=== PATIENT | male | born 1965 | race Caucasian/White ===

== ENCOUNTER 2016-07-06 09:21 | Outpatient (CLI) ==
[2015-12-31 16:21] VITALS: BMI 52.3
[2016-07-06 09:37] LABS: BASOPHILS % (AUTO) 0.4 % (0.0-3.0); EOSINOPHILS # (AUTO) 0.2 K/ul (0.0-0.7); HEMATOCRIT 42.3 % (42.0-52.0); HEMOGLOBIN 13.9 g/dl (14.0-18.0); IMMATURE GRANULOCYTE % (AUTO) 0.4 % (0.0-5.0); LYMPHOCYTES # (AUTO) 2.8 K/uL (0.60-3.4); LYMPHOCYTES % (AUTO) 25.9 (10.0-50.0); MEAN CORPUSCULAR HEMOGLOBIN 31.2 pg (27.0-31.0); MEAN CORPUSCULAR HGB CONC 32.9 (31.8-35.4); MEAN CORPUSCULAR VOLUME 95.1 fl (80.0-94.0); MONOCYTES # (AUTO) 0.9 K/uL (0.4-2.0); NEUTROPHILS # (AUTO) 6.8 K/ul (2.0-6.9); NEUTROPHILS % (AUTO) 63.3; PLATELET COUNT 316 10^3/uL (140-440); RED BLOOD COUNT 4.45 10^6/ul (4.70-6.10); WHITE BLOOD COUNT 10.69 K/ul (4.2-10.2)
[2016-07-06 10:14] LABS: ALBUMIN 3.6 g/dL (3.4-5.0); ALBUMIN/GLOBULIN RATIO 0.92; ANION GAP 13.8; BILIRUBIN,TOTAL 0.51 mg/dL (0.00-1.20); BUN/CREATININE RATIO 13.04; CALCIUM 9.6 mg/dL (8.2-10.2); CREATININE 0.92 mg/dL (0.60-1.10); POTASSIUM 4.8 mmol/L (3.5-5.1); TOTAL PROTEIN 7.5 g/dL (6.4-8.2)
== END 2016-07-06 09:22 | disposition home or self-care (01) ==
LOC: LAB 09:21
PROVIDERS: ATTEND Emergency Medicine
DX: E78.5 Hyperlipidemia, unspecified (principal); I10 Essential (primary) hypertension; E66.9 Obesity, unspecified; F32.9 Major depressive disorder, single episode, unspecified
CPT/HCPCS: 36415; 80053; 80061; 83036; 83525; 84443; 85025

== ENCOUNTER 2016-10-07 08:29 | Outpatient (CLI) ==
[2015-12-31 16:21] VITALS: BMI 52.3
[2016-10-07 08:45] LABS: BASOPHILS % (AUTO) 0.4 % (0.0-3.0); EOSINOPHILS # (AUTO) 0.3 K/ul (0.0-0.7); EOSINOPHILS % (AUTO) 4.3 % (0.0-7.0); HEMATOCRIT 39.7 % (42.0-52.0); HEMOGLOBIN 13.4 g/dl (14.0-18.0); IMMATURE GRANULOCYTE % (AUTO) 0.3 % (0.0-5.0); LYMPHOCYTES # (AUTO) 2.5 K/uL (0.60-3.4); LYMPHOCYTES % (AUTO) 32.5 (10.0-50.0); MEAN CORPUSCULAR HEMOGLOBIN 32.1 pg (27.0-31.0); MEAN CORPUSCULAR HGB CONC 33.8 (31.8-35.4); MONOCYTES # (AUTO) 1.2 K/uL (0.4-2.0); MONOCYTES % (AUTO) 15.4 (0-10); NEUTROPHILS # (AUTO) 3.6 K/ul (2.0-6.9); NEUTROPHILS % (AUTO) 47.1; PLATELET COUNT 276 10^3/uL (140-440); RED BLOOD COUNT 4.18 10^6/ul (4.70-6.10); WHITE BLOOD COUNT 7.66 K/ul (4.2-10.2)
[2016-10-07 09:33] LABS: ALBUMIN 3.3 g/dL (3.4-5.0); ALBUMIN/GLOBULIN RATIO 0.97; ANION GAP 13.3; BILIRUBIN,TOTAL 0.34 mg/dL (0.00-1.20); BUN/CREATININE RATIO 10.86; CHOL/HDL RATIO 3.7 (4.5-6.4); CREATININE 0.92 mg/dL (0.60-1.10); POTASSIUM 4.3 mmol/L (3.5-5.1); TOTAL PROTEIN 6.7 g/dL (6.4-8.2)
== END 2016-10-07 08:30 | disposition home or self-care (01) ==
LOC: LAB 08:29
PROVIDERS: ATTEND Emergency Medicine
DX: I10 Essential (primary) hypertension (principal); E78.5 Hyperlipidemia, unspecified; E66.9 Obesity, unspecified
CPT/HCPCS: 36415; 80053; 80061; 84443; 85025

== ENCOUNTER 2017-02-21 12:26 | Outpatient (CLI) ==
[2015-12-31 16:21] VITALS: BMI 52.3
[2017-02-21 12:33] LABS: BASOPHILS % (AUTO) 0.4 % (0.0-3.0); EOSINOPHILS # (AUTO) 0.2 K/ul (0.0-0.7); EOSINOPHILS % (AUTO) 2.1 % (0.0-7.0); HEMATOCRIT 40.4 % (42.0-52.0); HEMOGLOBIN 13.6 g/dl (14.0-18.0); IMMATURE GRANULOCYTE % (AUTO) 0.5 % (0.0-5.0); LYMPHOCYTES % (AUTO) 23.3 (10.0-50.0); MEAN CORPUSCULAR HEMOGLOBIN 32.1 pg (27.0-31.0); MEAN CORPUSCULAR HGB CONC 33.7 (31.8-35.4); MEAN CORPUSCULAR VOLUME 95.3 fl (80.0-94.0); MONOCYTES # (AUTO) 0.7 K/uL (0.4-2.0); MONOCYTES % (AUTO) 7.8 (0-10); NEUTROPHILS # (AUTO) 5.7 K/ul (2.0-6.9); NEUTROPHILS % (AUTO) 65.9; PLATELET COUNT 302 10^3/uL (140-440); RED BLOOD COUNT 4.24 10^6/ul (4.70-6.10); WHITE BLOOD COUNT 8.57 K/ul (4.2-10.2)
== END 2017-02-21 12:27 | disposition home or self-care (01) ==
LOC: LAB 12:26
PROVIDERS: ATTEND Emergency Medicine
DX: I10 Essential (primary) hypertension (principal)
CPT/HCPCS: 36415; 85025

== ENCOUNTER 2017-06-13 13:44 | Outpatient (CLI) ==
[2015-12-31 16:21] VITALS: BMI 52.3
== END 2017-06-13 13:45 | disposition home or self-care (01) ==
LOC: LAB 13:44
PROVIDERS: ATTEND Emergency Medicine
DX: E78.5 Hyperlipidemia, unspecified (principal); I10 Essential (primary) hypertension; E66.9 Obesity, unspecified
CPT/HCPCS: 36415; 80053; 80061; 84443; 85025

== ENCOUNTER 2017-06-20 06:32 | Outpatient (CLI) ==
[2015-12-31 16:21] VITALS: BMI 52.3
[2017-06-20] MEDS ORDERED: DOBUTAMINE 250 ML IV ONE (07:06)
[2017-06-20] MEDS ORDERED: ATROPINE SULFATE PFS ONE (07:06)
--- NOTE | 2017-06-20 10:50 | NM ---
EXAM: Myocardial perfusion imaging HISTORY: Hyperlipidemia and precordial pain COMPARISON: None. TECHNIQUE: The patient was injected 3.5 mCi of thallium 201 chloride intravenously while at rest. Ca rdiac SPECT was then acquired. Patient was subsequently stressed using dobutamine protocol and injec laura 25 mCi of Tc99m Sestamibi intravenously. Another SPECT imaging of the heart was performed. [place] d cardiac study was acquired. FINDINGS: Post stress images show slightly prominent left ventricular cavity. Reduced perfusion is i dentified involving the inferior wall of the left ventricle. There is a focal area of diminished per fusion in the left ventricle apex. Reperfusion is noted in these areas on delayed imaging. Anterior wall, septum and lateral stephens show normal perfusion. Left ventricular ejection fraction is 51%. I nferior wall is hypokinetic. IMPRESSION: 1. SPECT myocardial imaging shows Dobutamine induced reversible ischemia involving inferior wall and left ventricle apex. 2. Left ventricular ejection fraction is 51%. 3. Hypokinetic inferior wall.
--- NOTE | 2017-06-20 12:18 | DOBSTECHST ---
Ordering Physician: DR. SULTANA PAYNE Date of Test: 06/20/17 Reason for Examination: PRECORDIAL PAIN, HYPERTENSION, DYSLIPIDEMIA, OBESITY Current Medications: LISINOPRIL, IRON, PRAVASTATIN, CITALOPRAM, ASA Height: 68" Weight: 363 LBS Target Heart Rate: 144/170 ST Segment Stage Time HR BPM BP mmhg Rhythm +/- Up Down Comments/Symptoms Control Sitting 74 118/64 SR X NONE Dobutamine 250mg/D5W 5cmg/KG/mn 10cmg/KG/mn 3" 97 138/60 SR X NORMAL 15cmg/KG/mn 2" 98 SR X NORMAL 20cmg/KG/mn 2 100 122/58 SR X NORMAL 25cmg/KG/mn 2:51 146 122/58 SR X .25 ATROPINE GIVEN 30cmg/KG/mn 35cmg/KG/mn 40cmg/KG/mn Time: 3" HR B/P Time: 11" HR B/P Time: 28" HR B/P Recovery 130 116/52 Recovery 126 Recovery 94 118/60 Total Time: 9:51 Maximum Heart Rate Reached: 146 Interpretation: 97@ OXYGEN SATURATION AT REST 1. NON DIAGNOSTIC ST- T WAVE CHANGES 2. BILATERAL ARM PAIN DURING DOBUTAMINE INFUSION, NO SHORTNESS OF BREATH, NO SWEATING 3. FEW PVC'S WITH DOBUTAMINE INFUSION 4. LEFT VENTRICULAR CONTRACTILITY--NORMAL AT REST AND WITH DOBUTAMINE INFUSION CARDIOLITE/ SESTAMIBI TO FOLLOW MTDD
--- NOTE | 2017-06-23 11:46 | ECHOSTRESS ---
Date of Exam: 06/20/17 Ordering Physician: DR. SULTANA PAYNE Reason for Echo: PRECORDIAL PAIN, HYPERTENSION, OBESITY, DYSLIPIDEMIA, STRESS TEST--NONDIAGNOSTIC M-Mode Normal Adult Results LV Dimensions Normal Adult Results AoV Opening excursions >1.6 LVEDD-base- 3.5-5.8 Ao root dimensions 2.0-3.7 LVESD-base- 3.1-4.6 L. Atrium dimensions 1.9-3.8 Post. Wall thickness 0.8-1.1 IV septum (thickness) 0.7-1.2 Post. Wall excursion 0.72-1.3 Septal motion Systolic motion R. Ventricular cavity 1.5-2.0 LVEF 60% Paradoxical septal wall motion 2-D: NORMAL LEFT VENTRICULAR CONTRACTILITY--RESTING AND POST EXERCISE M-MODE: MV: AV: TV: PV: CHAMBER SIZE: WALL MOTION: NORMAL LEFT VENTRICULAR CONTRACTILITY--RESTING AND POST EXERCISE PERICARDIUM: INTERPRETATION: 1. NORMAL LEFT VENTRICULAR CONTRACTILITY--RESTING AND POST EXERCISE SESTAMIBI TO FOLLOW MTDD
== END 2017-06-20 06:33 | disposition home or self-care (01) ==
LOC: CAR 06:32
PROVIDERS: ATTEND Emergency Medicine
DX: E78.5 Hyperlipidemia, unspecified (principal); I10 Essential (primary) hypertension; R07.2 Precordial pain; E66.9 Obesity, unspecified

== ENCOUNTER 2017-09-08 13:58 | Outpatient (CLI) ==
[2015-12-31 16:21] VITALS: BMI 52.3
== END 2017-09-08 13:59 | disposition home or self-care (01) ==
LOC: CAR 13:58
PROVIDERS: ATTEND Psychiatry & Neurology Sleep Medicine
DX: G47.33 Obstructive sleep apnea (adult) (pediatric) (principal)

== ENCOUNTER 2017-11-14 10:38 | Outpatient (CLI) ==
[2015-12-31 16:21] VITALS: BMI 52.3
== END 2017-11-14 10:39 | disposition home or self-care (01) ==
LOC: RHC-LAB 10:38
PROVIDERS: ATTEND Emergency Medicine
DX: E78.5 Hyperlipidemia, unspecified (principal); I10 Essential (primary) hypertension; E66.9 Obesity, unspecified; F33.1 Major depressive disorder, recurrent, moderate
CPT/HCPCS: 36415; 80053; 80061; 84443; 85025

== ENCOUNTER 2018-06-05 11:41 | Outpatient (CLI) | payer MEDICAID, OTHER ==
[2015-12-31 16:21] VITALS: BMI 52.3
== END 2018-06-05 11:42 | disposition home or self-care (01) ==
LOC: RHC-LAB 11:41
PROVIDERS: ATTEND Nurse Practitioner Family
DX: R52 Pain, unspecified (principal); L02.212 Cutaneous abscess of back [any part, except buttock and flank]
CPT/HCPCS: 87070; 87186; 87502

== ENCOUNTER 2018-10-28 07:48 | Outpatient (CLI) ==
[2015-12-31 16:21] VITALS: BMI 52.3
== END 2018-10-28 07:49 | disposition home or self-care (01) ==
LOC: RHC-LAB 07:48
PROVIDERS: ATTEND Nurse Practitioner Family
DX: E78.5 Hyperlipidemia, unspecified (principal); I10 Essential (primary) hypertension; Z12.5 Encounter for screening for malignant neoplasm of prostate
CPT/HCPCS: 36415; 80053; 80061; 85025